=== PATIENT | female | born 1980 | race African-American/Black ===

== ENCOUNTER 2019-10-16 15:27 | Emergency (ER) | payer BC, OTHER ==
[~2019-10-16] VITALS: Ht 152.4 cm; Wt 83.5 kg
[~2019-10-16 15:27] MED LIST: ACETAMINOPHEN-1 EAC1; FLEXERIL PO; IBUPROFEN 800800 M1 PO; NORCO 5-325 TA1 EACH PO
[2019-10-16] MEDS ORDERED: PROAIR HFA8.5 GM INH (17:07)
[2019-10-16] MEDS ORDERED: TOPAMAX100 MG PO (17:08)
[2019-10-16] MEDS ORDERED: AMITRIPTYLINE H10 M1 PO (17:10)
[2019-10-16] MEDS ORDERED: ONZETRA XSAIL11 MG NS (17:10)
[2019-10-16] MEDS ORDERED: CYCLOBENZAPRINE5 MG PO (17:47)
[2019-10-16] MEDS ORDERED: NORCO 5-325 TA1 EAC1 PO (17:47)
[2019-10-16 18:14] VITALS: BP 116/75
== END 2019-10-16 18:15 | disposition home or self-care (01) ==
LOC: ER 15:27
DX: S00.83XA Contusion of other part of head, initial encounter (principal); M54.2 Cervicalgia; R42 Dizziness and giddiness; Z79.899 Other long term (current) drug therapy; Z98.51 Tubal ligation status; V49.88XA Car occupant (driver) (passenger) injured in other specified transport accidents, initial encounter; Y93.89 Activity, other specified; Y92.413 State road as the place of occurrence of the external cause; Y99.9 Unspecified external cause status